=== PATIENT | female | born 1975 | race American Indian/Alaskan Native ===

== ENCOUNTER 2016-11-04 07:58 | Day surgery (SDC) | payer MEDICAID ==
[2016-11-04] MEDS ORDERED: Lactated Ringers 1,000 ML IV SCH (08:00)
[2016-11-04] MEDS ORDERED: Sodium Chloride 0.9% 10 ML Syringe FLUSH PRN ×2 (08:00)
[2016-11-04] MEDS: ceFAZolin 1 GM in Premix Bag 1 BAG IV ONE ×2 (09:13→10:10)
[2016-11-04] MEDS ORDERED: Ondansetron 4 MG/2 ML SDV ONE (09:27)
[2016-11-04] MEDS ORDERED: Propofol 200 MG/20 ML SDV ONE (09:27)
[2016-11-04] MEDS ORDERED: fentaNYL 100 MCG/2 ML SDV ONE (09:27)
[2016-11-04] MEDS ORDERED: Midazolam 1 MG/ML 2 ML SDV ONE (09:27)
[2016-11-04] MEDS ORDERED: Ketorolac 30 MG/ML SDV ONE (09:27)
[2016-11-04] MEDS ORDERED: Glycopyrrolate 0.2 MG/ML 2 ML SDV ONE (09:27)
[2016-11-04] MEDS ORDERED: Bupivacaine 0.5% 10 ML SDV ONE (09:29)
[2016-11-04] MEDS ORDERED: Lidocaine 1% 30 ML SDV ONE (09:30)
[2016-11-04] MEDS ORDERED: Bupivacaine 0.5% 10 ML SDV INJECT ONE ×3 (09:59→12:31)
[2016-11-04] MEDS ORDERED: Lidocaine 1% 30 ML SDV INJECT ONE ×3 (09:59→12:31)
[2016-11-04] MEDS ORDERED: Acetaminophen/oxyCODONE 325-5 MG Tab PO PRN (12:50)
--- NOTE | 2016-11-04 12:53 | PCM.OPNOTE ---
- General Post-Op/Procedure Note Date of Surgery/Procedure: 11/04/16 Operative Procedure(s): right lateral ankle stabilization with bone anchor, peroneal brevis tendon tear repair with amniofix allograft, sural neurectomy with implantation into muscle belly. Pre Op Diagnosis: lateral ankle instability, peroneal tendon pain/tear, painful sural nerve intrapment. Post-Op Diagnosis: sujatha Anesthesia Technique: General LMA Primary Surgeon: Cailin Soares Anesthesia Provider: Yoel Napoles EBL in mLs: 5 Complications: none Condition: Good Free Text/Narrative:: Intake & Output 11/03/16 11/04/16 11/04/16 22:59 06:59 14:59 Intake Total 50 Balance 50 Pt tolerated procedure well and was transported to pacu with vss and vascular status intact to [facility]. TT 120 mins. [place] bone anchor placed in distal fibula, amniofix applied to peroneal tendon and also to sural nerve. Well padded L&U splint applied.
[2016-11-04] MEDS ORDERED: HYDROmorphone 1 MG/ML Syringe ONE ×2 (13:12→13:32)
[2016-11-04] MEDS ORDERED: fentaNYL 100 MCG/2 ML SDV IV ONE (15:07)
[2016-11-04] MEDS ORDERED: Ondansetron 4 MG/2 ML SDV IV ONE (15:07)
[2016-11-04] MEDS ORDERED: Glycopyrrolate 0.2 MG/ML 2 ML SDV IV ONE (15:07)
[2016-11-04] MEDS ORDERED: Propofol 200 MG/20 ML SDV IV ONE (15:07)
[2016-11-04] MEDS ORDERED: Ketorolac 30 MG/ML SDV IVPUSH ONE (15:07)
[2016-11-04] MEDS ORDERED: Midazolam 1 MG/ML 2 ML SDV IV ONE (15:07)
[2016-11-04] MEDS ORDERED: Lactated Ringers 1,000 ML IV ONE (15:08)
[2016-11-04 15:31] VITALS: BP 150/86
--- NOTE | 2016-11-05 23:29 | OR ---
DATE: 11/04/2016 PREOPERATIVE DIAGNOSES: 1. Right peroneal tendon tear. 2. Right foot sural nerve entrapment/neuritis. 3. Right lateral ankle instability. POSTOPERATIVE DIAGNOSES: 1. Right peroneal tendon tear. 2. Right foot sural nerve entrapment/neuritis. 3. Right lateral ankle instability. PROCEDURE PERFORMED: 1. Right ankle peroneal tendon repair with amnion allograft. 2. Right foot sural neurectomy with transposition into the peroneal muscle belly with amnion allograft. 3. Right lateral ankle stabilization procedure with bone anchor. ANESTHESIA: LMA with preoperative local block of 10 mL of 1:1 mixture of 1% lidocaine plain and 0.5% Marcaine plain. TOURNIQUET TIME: 120 minutes pneumatic thigh tourniquet. ESTIMATED BLOOD LOSS: Minimal. SPECIMEN: None. COMPLICATIONS: None. INDICATIONS: Soraya is a 41-year-old female, who is presenting with chronic right ankle pain and instability. She had a surgery done on that right ankle over 2 years ago back in 2013. She had an injury after that initial surgery and re- injured her ankle. Since that time, she has been having pain and instability to that ankle and foot. We have tried Nupur Ankle Brace which helped for a little bit for some time, but she is still having the pain. She is also on Lyrica for the nerve pain. She states that she is still having the nerve pain at night mostly, there is a spot along the outside of her foot and ankle that really thomas and bothers her. She also has pain on the outside front of the ankle which feels very unstable for her and she has to be very careful where she walks due to chronic spraining of that ankle. The ankle feels like it is wobbling all the time. We have tried injections into the nerve area without any relief. She reports that the ankle will get swollen by the end of the day. MRI of the right ankle performed on March revealed a longitudinal tear of the peroneal brevis tendon, postsurgical changes at the peroneal longus tendon without any obvious tear, ATFL is not visualized and appears to be torn with increased signal to that area. There is also increased signal at the lateral posterior foot along the sural nerve course. No fractures. The patient voiced good understanding of the proposed procedure and possible complications and elects to have surgery at this time. I did discuss with her that if we do have to do the nerve release, then she will have numbness to that outside of the foot. She understands and wants to go ahead with the procedure. DESCRIPTION OF PROCEDURE: The patient was taken to the operating room, lying in supine position. After adequate anesthesia induction as described above, the right foot and ankle were prepped in the usual sterile fashion. A pneumatic thigh tourniquet was then inflated to 245 mmHg. Attention was then directed to the posterolateral aspect of the ankle where an approximately 5 cm linear incision was made along the course of the peroneal tendons posterior to the lateral malleolus starting approximately 3 cm proximal to the distal tip of the fibula and ending just distal to the fibula. A linear incision was made through the periosteum and on the fibula and the peroneal tendon sheaths and the peroneal tendons were exposed. The peroneal tendons were then inspected and an approximately 2 cm longitudinal tear was noted in the mid substance of the peroneus brevis in the location just posterior to the lateral malleolus. The rest of the peroneal brevis tendon was healthy in appearance, the longus tendon was also healthy in appearance without any signs of tears or defects. The tear was cut out with 15 blade and then was repaired and retubularized with 3-0 nylon. The groove at the posterolateral aspect of the fibula was inspected and was noted to be concave and smooth in appearance. There was some synovitis present which was all removed. The AmnioFix allograft was then placed around the peroneal brevis tendon tear and the tendon sheath was repaired with 3-0 Vicryl, the peroneal retinaculum was also repaired with 3-0 Vicryl. The tendons were noted to be smooth with range of motion without any subluxation with dorsiflexion or eversion of the foot. Attention was then directed through the same incision and the sural nerve was visualized, this was noted to be severely entrapped in scar tissue just beneath the peroneal tendon area. The nerve was released and was visualized. Upon visualization, it did appear that the nerve was not salvageable. The nerve was transected and the nerve ending was cut to good-appearing healthy nerve. This was then transpositioned into the muscle of the peroneal brevis muscle belly with a 4-0 Vicryl stitch. A small piece of the AmnioFix allograft was then wrapped around the nerve in this area. This was secured down with a 4-0 Vicryl stitch. Attention was then directed to the area just distal to the fibula where a curvilinear incision was made extending from the original incision that we had been using at the distal anterior aspect of the fibula. Sharp and blunt dissection was performed down to the level of the ankle joint capsule and inferior extensor retinaculum. Care was taken to avoid all neurovascular structures and cauterize all bleeders. A 15 blade was then used to incise the anterolateral ankle capsule and ATFL down to the level of the peroneal tendon sheath area. Dissection was made in the layer the extensor retinaculum and the anterior ankle joint. The periosteum was elevated from the distal anterior fibula and a rongeur was used to create a gutter running transversely along the distal tip of the fibula down to bleeding bone. Excessive overlapping soft tissue at the anterior ankle joint was then excised in a lunar fashion. A [facility] corkscrew anchor was then inserted from distal to proximal centered at the distal aspect of the fibula. It was visualized that it was not going into the ankle joint or the peroneal groove. The suture from the bone anchor was then used to suture the ATFL and anterior capsule and secured them down to the fibula with the ankle held in an everted position. The suture was then used to secure the extensor retinaculum over the anterior ankle capsule to the fibula and the remaining suture was then used to secure the periosteum to the inferior extensor retinaculum in a [id number] fashion with the foot in the everted position throughout this entire process. The ankle was then tested and noted to be stable to inversion and talar tilt at this time. The areas were then irrigated with copious amounts of sterile saline. Deep closure was completed with 3-0 Vicryl and skin closure was completed with 4-0 nylon. The area was dressed with Xeroform, fluffs, and Webril and the patient was placed in a well-padded L\T\U splint with the foot in eversion. The patient tolerated the anesthesia and the procedure well and was transported to recovery with vital signs stable and vascular status intact as noted by immediate hyperemia to all digits upon deflation of the thigh tourniquet. Total tourniquet time was 120 minutes. The patient was then discharged home when she met hospital discharge requirements. [facility] /[id number]
== END 2016-11-04 14:25 | disposition home or self-care (01) ==
LOC: DL.SDS 07:58
PROVIDERS: ATTEND Podiatrist
DX: G58.8 Other specified mononeuropathies (principal); M25.371 Other instability, right ankle; E66.9 Obesity, unspecified; F32.9 Major depressive disorder, single episode, unspecified; D64.9 Anemia, unspecified; E10.9 Type 1 diabetes mellitus without complications; Z90.49 Acquired absence of other specified parts of digestive tract; Z98.890 Other specified postprocedural states; I10 Essential (primary) hypertension; Z79.899 Other long term (current) drug therapy; Z79.4 Long term (current) use of insulin; Z88.8 Allergy status to other drugs, medicaments and biological substances
CPT/HCPCS: 27659; 27695; 64704; 80305; 81025; J0690; J7120; 01470; C1713; C1762; J1885; J2250; J2405; J2704; J3010; J3490

== ENCOUNTER 2018-07-06 17:59 | Emergency (ER) | payer MEDICAID, SELFPAY ==
[2018-07-06] MEDS ORDERED: Sodium Chloride 0.9% 10 ML Syringe FLUSH PRN (18:06)
[2018-07-06] MEDS ORDERED: Naloxone 2 MG/2 ML Syringe IVPUSH ONE (18:07)
[2018-07-06] MEDS ORDERED: Sodium Chloride 0.9% 1,000 ML IV ONE (18:09)
[2018-07-06] MEDS ORDERED: Ondansetron 4 MG/2 ML SDV IV ONE (18:09)
[2018-07-06] MEDS ORDERED: Flumazenil 0.1 MG/ML 5 ML MDV IVPUSH ONE (18:09)
[2018-07-06] MEDS ORDERED: Naloxone 2 MG/2 ML Syringe IV ONE (18:10)
[2018-07-06] MEDS ORDERED: Insulin Regular, Human 100 Units/ML 3 ML Vial ONE (18:33)
[2018-07-06 19:08] LABS: SODIUM,NA 123 mmol/L (135-145)
[2018-07-06 19:09] LABS: ANION GAP 38.7; CHLORIDE,CL 76 mmol/L (101-111)
[2018-07-06] MEDS ORDERED: Vasopressin 20 Units/1 ML MDV ONE (19:46)
[2018-07-06] MEDS ORDERED: Phenylephrine 1% 10 MG/ML SDV ONE (19:55)
[2018-07-06 19:59] LABS: BASE EXCESS ARTERIAL -22 mmol/L ((-2)-(+3)); BICARBONATE,ARTERIAL 11.9 mmol/L (22-26); O2 DELIVERY DEVICE VENTILATOR; O2 SATURATION ARTERIAL 68 % (95-100); PCO2 ARTERIAL 60 mmHg (35-45); PO2 ARTERIAL 72 mmHg (70-100)
[2018-07-06] MEDS ORDERED: Sodium Bicarbonate 8.4% 50 MEQ/50 ML Syringe ONE ×2 (20:05→20:06)
--- NOTE | 2018-07-14 07:05 | EDM.PDOCBH ---
Scribed by Dominique Montoya 07/06/18 [id number] for Anahi Cutler NP <Anahi Cutler - Last Filed: 07/07/18 10:35> ED HPI GENERAL MEDICAL PROBLEM - General Chief Complaint: Drug or Alcohol Abuse Stated Complaint: [facility] Time Seen by Provider: 07/06/18 17:57 Source of Information: Reports: Patient, EMS, EMS Notes Reviewed, RN, RN Notes Reviewed History Limitations: Reports: No Limitations - Related Data Allergies Allergy/AdvReac Type Severity Reaction Status Date / Time acetaminophen Allergy Hives Verified 11/03/16 10:51 [From Tylenol-Codeine #3] codeine phosphate Allergy Hives Verified 11/03/16 10:51 [From Tylenol-Codeine #3] meperidine HCl [From Demerol] Allergy Hives Verified 11/03/16 10:51 Home Meds: Home Meds Insulin Aspart [NovoLOG] 10 units SQ TIDMEALS 12/23/13 [History] oxyCODONE HCl/Acetaminophen [Endocet 10-325 mg Tablet] 1 each PO Q6HR PRN [History] Insulin Detemir [Levemir Flextouch] 40 unit SQ DAILY 11/03/16 [History] Pregabalin [Lyrica] 200 mg PO DAILY 11/03/16 [History] Venlafaxine [Effexor XR 24 Hr] 75 mg PO DAILY 11/03/16 [History] oxyCODONE HCl [Roxicodone] 5 mg PO BID PRN 11/03/16 [History] Past Medical History Cardiovascular History: Reports: Hypertension Respiratory History: Reports: None Gastrointestinal History: Reports: Bowel Obstruction, Cholelithiasis, Pancreatitis Musculoskeletal History: Reports: Arthritis, Back Pain, Chronic, Fracture, Other (See Below) Other Musculoskeletal History: Compression fracture. DDD (degenerative disc disease). Myofacial muscle pain syndrome, thoracolumbar region. facet arthritis of LS region Neurological History: Reports: Neuropathy, Diabetic Psychiatric History: Reports: Depression Endocrine/Metabolic History: Reports: Diabetes, Type II, Other (See Below) Other Endocrine/Metabolic History: painful neuropathy probably diabetes related Hematologic History: Reports: Anemia, Iron Deficiency Immunologic History: Reports: None Oncologic (Cancer) History: Reports: None Other Dermatologic History: hx of right leg ulcer - Infectious Disease History Infectious Disease History: Reports: Chicken Pox - Past Surgical History GI Surgical History: Reports: Cholecystectomy, Other (See Below) Female Surgical History: Reports: Section, D&C Musculoskeletal Surgical History: Reports: Carpal Tunnel, Other (See Below) Social & Family History - Family History Family Medical History: Noncontributory - Caffeine Use Caffeine Use: Reports: Coffee, Tea EKG INTERPRETATION EKG Date: 07/06/18 Time: 18:43 Rhythm: Other (sinus rhythm) Rate (Beats/Min): 90 [place]: Normal P-Wave: Present QRS: Other (Nonspecific intraventricular conduction delay and probable left ventricular hypertrophy.) ST-T: Normal QT: Normal COURSE, BEHAVIORAL HEALTH COMP - Course Orders, Labs, Meds: Laboratory Tests 07/06/18 07/06/18 07/06/18 Range/Units 18:30 18:35 18:35 WBC 14.1 H (5.0-10.0) 10^3/uL RBC 5.41 H (4.2-5.4) 10^6/uL Hgb 15.7 D (12.0-16.0) g/dL Hct 46.9 (37.0-47.0) % MCV 86.7 (80-100) fL MCH 29.0 (27.0-34.0) pg MCHC 33.5 (33.0-35.0) g/dL Plt Count 222 D (150-450) 10^3/uL Neut % (Auto) 60.4 (42.2-75.2) % Lymph % (Auto) 23.9 (20.5-50.1) % [place] % (Auto) 15.2 H (2-8) % Eos % (Auto) 0.3 L (1.0-3.0) % Baso % (Auto) 0.2 (0.0-1.0) % Add Manual Diff Yes Neutrophils % (Manual) 7 L (42-75) % Band Neutrophils % 28 % Lymphocytes % (Manual) 57 H (20-50) % Atypical Lymphs % 0 % Monocytes % (Manual) 7 (2-8) % Eosinophils % (Manual) 1 (1-3) % Basophils % (Manual) 0 PT (9.0-12.0) SEC INR (0.9-1.2) APTT (22.0-34.0) SEC ABG pH (7.35-7.45) ABG pCO2 (35-45) mmHg ABG pO2 (70-100) mmHg ABG HCO3 (22-26) mmol/L ABG O2 Saturation (95-100) % ABG Base Excess ((-2)-(+3)) mmol/L O2 Delivery Device Sodium 123 L D (135-145) mmol/L Potassium 3.7 (3.6-5.0) mmol/L Chloride 76 L D (101-111) mmol/L Carbon Dioxide 12.0 L D (21.0-31.0) mmol/L Anion Gap 38.7 BUN 38 H D (7-18) mg/dL Creatinine 1.7 H D (0.6-1.3) mg/dL Est Cr Clr Drug Dosing TNP Estimated GFR (MDRD) 33 BUN/Creatinine Ratio 22.35 Glucose 788 H* (74-105) mg/dL POC Glucose (70-105) mg/dl Lactic Acid (0.5-2.2) mmol/L Calcium 8.2 L (8.4-10.2) mg/dl Phosphorus 12.0 H* (2.5-4.6) mg/dL Magnesium 2.7 H (1.8-2.5) mg/dL Total Bilirubin 1.3 H (0.2-1.0) mg/dL AST 67 H (10-42) IU/L ALT 36 (10-60) IU/L Alkaline Phosphatase 107 (42-121) IU/L Ammonia (11-35) umol/L Troponin I < 0.02 (0.00-0.02) ng/ml Total Protein 6.7 (6.7-8.2) g/dl Albumin 3.5 (3.2-5.5) g/dl Globulin 3.2 Albumin/Globulin Ratio 1.09 Urine Color (YELLOW) Urine Appearance (CLEAR) Urine pH (5.0-9.0) Ur Specific [place] (1.005-1.030) Urine Protein (NEGATIVE) Urine Glucose (UA) (NEGATIVE) Urine Ketones (NEGATIVE) Urine Occult Blood (NEGATIVE) Urine Nitrite (NEGATIVE) Urine Bilirubin (NEGATIVE) Urine Urobilinogen (0.2-1.0) mg/dL Ur Leukocyte Esterase (NEGATIVE) Urine RBC /HPF Urine WBC (0-5/HPF) /HPF Ur Epithelial Cells /HPF Urine Bacteria (0-FEW/HPF) /HPF Urine HCG, Qual Urine Opiates Screen (NEGATIVE) Ur Oxycodone Screen (NEGATIVE) Urine Methadone Screen (NEGATIVE) Ur Barbiturates Screen (NEGATIVE) U Tricyclic Antidepress (NEGATIVE) Ur Phencyclidine Scrn (NEGATIVE) Ur Amphetamine Screen (NEGATIVE) U Methamphetamines Scrn (NEGATIVE) Urine MDMA Screen (NEGATIVE) U Benzodiazepines Scrn (NEGATIVE) Urine Cocaine Screen (NEGATIVE) U Marijuana (THC) Screen (NEGATIVE) Ethyl Alcohol 5 mg/dL Ketones Positive 07/06/18 07/06/18 07/06/18 Range/Units 19:00 19:00 19:00 WBC (5.0-10.0) 10^3/uL RBC (4.2-5.4) 10^6/uL Hgb (12.0-16.0) g/dL Hct (37.0-47.0) % MCV (80-100) fL MCH (27.0-34.0) pg MCHC (33.0-35.0) g/dL Plt Count (150-450) 10^3/uL Neut % (Auto) (42.2-75.2) % Lymph % (Auto) (20.5-50.1) % [place] % (Auto) (2-8) % Eos % (Auto) (1.0-3.0) % Baso % (Auto) (0.0-1.0) % Add Manual Diff Neutrophils % (Manual) (42-75) % Band Neutrophils % % Lymphocytes % (Manual) (20-50) % Atypical Lymphs % % Monocytes % (Manual) (2-8) % Eosinophils % (Manual) (1-3) % Basophils % (Manual) PT (9.0-12.0) SEC INR (0.9-1.2) APTT (22.0-34.0) SEC ABG pH (7.35-7.45) ABG pCO2 (35-45) mmHg ABG pO2 (70-100) mmHg ABG HCO3 (22-26) mmol/L ABG O2 Saturation (95-100) % ABG Base Excess ((-2)-(+3)) mmol/L O2 Delivery Device Sodium (135-145) mmol/L Potassium (3.6-5.0) mmol/L Chloride (101-111) mmol/L Carbon Dioxide (21.0-31.0) mmol/L Anion Gap BUN (7-18) mg/dL Creatinine (0.6-1.3) mg/dL Est Cr Clr Drug Dosing Estimated GFR (MDRD) BUN/Creatinine Ratio Glucose (74-105) mg/dL POC Glucose (70-105) mg/dl Lactic Acid 16.8 H (0.5-2.2) mmol/L Calcium (8.4-10.2) mg/dl Phosphorus (2.5-4.6) mg/dL Magnesium (1.8-2.5) mg/dL Total Bilirubin (0.2-1.0) mg/dL AST (10-42) IU/L ALT (10-60) IU/L Alkaline Phosphatase (42-121) IU/L Ammonia (11-35) umol/L Troponin I (0.00-0.02) ng/ml Total Protein (6.7-8.2) g/dl Albumin (3.2-5.5) g/dl Globulin Albumin/Globulin Ratio Urine Color (YELLOW) Urine Appearance (CLEAR) Urine pH (5.0-9.0) Ur Specific [place] (1.005-1.030) Urine Protein (NEGATIVE) Urine Glucose (UA) (NEGATIVE) Urine Ketones (NEGATIVE) Urine Occult Blood (NEGATIVE) Urine Nitrite (NEGATIVE) Urine Bilirubin (NEGATIVE) Urine Urobilinogen (0.2-1.0) mg/dL Ur Leukocyte Esterase (NEGATIVE) Urine RBC /HPF Urine WBC (0-5/HPF) /HPF Ur Epithelial Cells /HPF Urine Bacteria (0-FEW/HPF) /HPF Urine HCG, Qual Negative Urine Opiates Screen Negative (NEGATIVE) Ur Oxycodone Screen Positive H (NEGATIVE) Urine Methadone Screen Negative (NEGATIVE) Ur Barbiturates Screen Negative (NEGATIVE) U Tricyclic Antidepress Negative (NEGATIVE) Ur Phencyclidine Scrn Negative (NEGATIVE) Ur Amphetamine Screen Negative (NEGATIVE) U Methamphetamines Scrn Negative (NEGATIVE) Urine MDMA Screen Negative (NEGATIVE) U Benzodiazepines Scrn Negative (NEGATIVE) Urine Cocaine Screen Negative (NEGATIVE) U Marijuana (THC) Screen Positive H (NEGATIVE) Ethyl Alcohol mg/dL Ketones 07/06/18 07/06/18 07/06/18 Range/Units 19:00 19:00 19:00 WBC (5.0-10.0) 10^3/uL RBC (4.2-5.4) 10^6/uL Hgb (12.0-16.0) g/dL Hct (37.0-47.0) % MCV (80-100) fL MCH (27.0-34.0) pg MCHC (33.0-35.0) g/dL Plt Count (150-450) 10^3/uL Neut % (Auto) (42.2-75.2) % Lymph % (Auto) (20.5-50.1) % [place] % (Auto) (2-8) % Eos % (Auto) (1.0-3.0) % Baso % (Auto) (0.0-1.0) % Add Manual Diff Neutrophils % (Manual) (42-75) % Band Neutrophils % % Lymphocytes % (Manual) (20-50) % Atypical Lymphs % % Monocytes % (Manual) (2-8) % Eosinophils % (Manual) (1-3) % Basophils % (Manual) PT 11.6 (9.0-12.0) SEC INR 1.2 (0.9-1.2) APTT 31.6 (22.0-34.0) SEC ABG pH (7.35-7.45) ABG pCO2 (35-45) mmHg ABG pO2 (70-100) mmHg ABG HCO3 (22-26) mmol/L ABG O2 Saturation (95-100) % ABG Base Excess ((-2)-(+3)) mmol/L O2 Delivery Device Sodium (135-145) mmol/L Potassium (3.6-5.0) mmol/L Chloride (101-111) mmol/L Carbon Dioxide (21.0-31.0) mmol/L Anion Gap BUN (7-18) mg/dL Creatinine (0.6-1.3) mg/dL Est Cr Clr Drug Dosing Estimated GFR (MDRD) BUN/Creatinine Ratio Glucose (74-105) mg/dL POC Glucose (70-105) mg/dl Lactic Acid (0.5-2.2) mmol/L Calcium (8.4-10.2) mg/dl Phosphorus (2.5-4.6) mg/dL Magnesium (1.8-2.5) mg/dL Total Bilirubin (0.2-1.0) mg/dL AST (10-42) IU/L ALT (10-60) IU/L Alkaline Phosphatase (42-121) IU/L Ammonia 330 H (11-35) umol/L Troponin I (0.00-0.02) ng/ml Total Protein (6.7-8.2) g/dl Albumin (3.2-5.5) g/dl Globulin Albumin/Globulin Ratio Urine Color Yellow (YELLOW) Urine Appearance Slightly cloudy (CLEAR) Urine pH 5.0 (5.0-9.0) Ur Specific [place] <= 1.005 (1.005-1.030) Urine Protein Negative (NEGATIVE) Urine Glucose (UA) 500 H (NEGATIVE) Urine Ketones Trace H (NEGATIVE) Urine Occult Blood Moderate H (NEGATIVE) Urine Nitrite Negative (NEGATIVE) Urine Bilirubin Negative (NEGATIVE) Urine Urobilinogen 0.2 (0.2-1.0) mg/dL Ur Leukocyte Esterase Negative (NEGATIVE) Urine RBC 0-5 /HPF Urine WBC 0-5 (0-5/HPF) /HPF Ur Epithelial Cells Few /HPF Urine Bacteria Moderate H (0-FEW/HPF) /HPF Urine HCG, Qual Urine Opiates Screen (NEGATIVE) Ur Oxycodone Screen (NEGATIVE) Urine Methadone Screen (NEGATIVE) Ur Barbiturates Screen (NEGATIVE) U Tricyclic Antidepress (NEGATIVE) Ur Phencyclidine Scrn (NEGATIVE) Ur Amphetamine Screen (NEGATIVE) U Methamphetamines Scrn (NEGATIVE) Urine MDMA Screen (NEGATIVE) U Benzodiazepines Scrn (NEGATIVE) Urine Cocaine Screen (NEGATIVE) U Marijuana (THC) Screen (NEGATIVE) Ethyl Alcohol mg/dL Ketones 07/06/18 07/06/18 07/06/18 Range/Units 19:04 19:54 20:10 WBC (5.0-10.0) 10^3/uL RBC (4.2-5.4) 10^6/uL Hgb (12.0-16.0) g/dL Hct (37.0-47.0) % MCV (80-100) fL MCH (27.0-34.0) pg MCHC (33.0-35.0) g/dL Plt Count (150-450) 10^3/uL Neut % (Auto) (42.2-75.2) % Lymph % (Auto) (20.5-50.1) % [place] % (Auto) (2-8) % Eos % (Auto) (1.0-3.0) % Baso % (Auto) (0.0-1.0) % Add Manual Diff Neutrophils % (Manual) (42-75) % Band Neutrophils % % Lymphocytes % (Manual) (20-50) % Atypical Lymphs % % Monocytes % (Manual) (2-8) % Eosinophils % (Manual) (1-3) % Basophils % (Manual) PT (9.0-12.0) SEC INR (0.9-1.2) APTT (22.0-34.0) SEC ABG pH 6.93 L* (7.35-7.45) ABG pCO2 60 H (35-45) mmHg ABG pO2 72 (70-100) mmHg ABG HCO3 11.9 L (22-26) mmol/L ABG O2 Saturation 68 L (95-100) % ABG Base Excess -22 L ((-2)-(+3)) mmol/L O2 Delivery Device Ventilator Sodium (135-145) mmol/L Potassium (3.6-5.0) mmol/L Chloride (101-111) mmol/L Carbon Dioxide (21.0-31.0) mmol/L Anion Gap BUN (7-18) mg/dL Creatinine (0.6-1.3) mg/dL Est Cr Clr Drug Dosing Estimated GFR (MDRD) BUN/Creatinine Ratio Glucose (74-105) mg/dL POC Glucose > 500 H* > 500 H* (70-105) mg/dl Lactic Acid (0.5-2.2) mmol/L Calcium (8.4-10.2) mg/dl Phosphorus (2.5-4.6) mg/dL Magnesium (1.8-2.5) mg/dL Total Bilirubin (0.2-1.0) mg/dL AST (10-42) IU/L ALT (10-60) IU/L Alkaline Phosphatase (42-121) IU/L Ammonia (11-35) umol/L Troponin I (0.00-0.02) ng/ml Total Protein (6.7-8.2) g/dl Albumin (3.2-5.5) g/dl Globulin Albumin/Globulin Ratio Urine Color (YELLOW) Urine Appearance (CLEAR) Urine pH (5.0-9.0) Ur Specific [place] (1.005-1.030) Urine Protein (NEGATIVE) Urine Glucose (UA) (NEGATIVE) Urine Ketones (NEGATIVE) Urine Occult Blood (NEGATIVE) Urine Nitrite (NEGATIVE) Urine Bilirubin (NEGATIVE) Urine Urobilinogen (0.2-1.0) mg/dL Ur Leukocyte Esterase (NEGATIVE) Urine RBC /HPF Urine WBC (0-5/HPF) /HPF Ur Epithelial Cells /HPF Urine Bacteria (0-FEW/HPF) /HPF Urine HCG, Qual Urine Opiates Screen (NEGATIVE) Ur Oxycodone Screen (NEGATIVE) Urine Methadone Screen (NEGATIVE) Ur Barbiturates Screen (NEGATIVE) U Tricyclic Antidepress (NEGATIVE) Ur Phencyclidine Scrn (NEGATIVE) Ur Amphetamine Screen (NEGATIVE) U Methamphetamines Scrn (NEGATIVE) Urine MDMA Screen (NEGATIVE) U Benzodiazepines Scrn (NEGATIVE) Urine Cocaine Screen (NEGATIVE) U Marijuana (THC) Screen (NEGATIVE) Ethyl Alcohol mg/dL Ketones Medications Discontinued Medications Generic Name Dose Route Start Last Admin Trade Name Freq PRN Reason Stop Dose Admin Flumazenil 0.2 mg 07/06/18 18:09 Romazicon IVPUSH 07/06/18 18:10 ONETIME ONE Sodium Chloride 1,000 mls @ 999 mls/hr 07/06/18 18:09 Normal Saline IV 07/06/18 19:09 .BOLUS ONE Phenylephrine HCl 10 mg/ 101 mls @ 24.24 mls/hr 07/06/18 20:00 Sodium Chloride IV TITRATE LEILANI Protocol 40 MCG/MIN Insulin Human Regular Confirm 07/06/18 18:33 Humulin R Administered 07/06/18 18:34 Dose 300 unit .ROUTE .STK-MED ONE Naloxone HCl 2 mg 07/06/18 18:07 Narcan IVPUSH 07/06/18 18:08 ONETIME ONE Naloxone HCl 2 mg 07/06/18 18:10 Narcan IV 07/06/18 18:11 ONETIME ONE Ondansetron HCl 4 mg 07/06/18 18:09 Zofran IV 07/06/18 18:10 ONETIME ONE Phenylephrine HCl Confirm 07/06/18 19:55 Jh-Synephrine Administered 07/06/18 19:56 Dose 10 mg .ROUTE .STK-MED ONE Sodium Bicarbonate Confirm 07/06/18 20:05 Sodium Bicarbonate 8.4% Administered 07/06/18 20:06 Dose 50 meq .ROUTE .STK-MED ONE Sodium Bicarbonate Confirm 07/06/18 20:06 Sodium Bicarbonate 8.4% Administered 07/06/18 20:07 Dose 50 meq .ROUTE .STK-MED ONE Sodium Chloride 10 ml 07/06/18 18:06 Saline Flush FLUSH ASDIRECTED PRN Keep Vein Open Vasopressin Confirm 07/06/18 19:46 Vasopressin Administered 07/06/18 19:47 Dose 20 units .ROUTE .STK-MED ONE Re-Assessment/Re-Exam: Chest x-ray: ET tube ends 1cm proximal to the dony. NG tube in the stomach. See rad report. Re-Assessment/Re-Exam Date: 07/06/18 (Patient left the ER with flight crew for transfer to [facility] in . Approximately 2044 notified by flight crew that the patient became asystole again and CPR was in progress, report that epinephrine 1mg had been given x3, pt remains asystole. TOD called at 2058. [email or web address] notified , family notified. ) Departure - Departure Disposition: 20 Clinical Impression: Cardiopulmonary arrest with successful resuscitation, Opiate dependence, continuous DKA (diabetic ketoacidoses) Qualifiers: Diabetes mellitus type: type 2 Diabetes mellitus complication detail: with coma Qualified Code(s): E11.11 - Type 2 diabetes mellitus with ketoacidosis with coma Uncontrolled diabetes mellitus Qualifiers: Diabetes mellitus type: type 1 Qualified Code(s): E10.8 - Type 1 diabetes mellitus with unspecified complications - Discharge Information Referrals: Elda Frazier MD [Primary Care Provider] - Forms: ED Department Discharge, Interfacility Transfer EMTALA <Dylan Umaña - Last Filed: 07/08/18 15:48> ED HPI GENERAL MEDICAL PROBLEM - General History Limitations: Reports: No Limitations, Altered Mental Status (became unresponsive shortly after arrival to ER) - History of Present Illness INITIAL COMMENTS - FREE TEXT/NARRATIVE: Arrives from home by [facility] with report that pt became unresponsive while on the commode. EMS found pt on a sofa unresponsive. Pt's children reported that she might have overdosed on Percocet. Pt's does not think she overdosed. EMS gave Narcan 4mg intranasally x2 and report that pt did have some response and became "a little more alert". Shortly after arriving to the ER the pt became unresponsive and a pulseless, and izabela maciel was called. Onset: Today, Unknown/Unsure Location: Reports: Generalized Severity: Severe Past Medical History - History Comment History Comment: unable to obtain Hx from pt. Pt's states pt is diabetic, but doesn't know if she is type 1 or 2. Social & Family History - Family History Family Medical History: Unobtainable (from pt. (unresponsive)) ED ROS GENERAL - Review of Systems Review Of Systems: Unable To Obtain ED EXAM, BEHAVIORAL HEALTH - Physical Exam Exam: See Below Exam Limited By: Other (Unresponsive) General Appearance: Obtunded, Severe Distress Eye Exam: Bilateral Eye: Abnormal Pupil (sluggishly responsive 2mm B/L) Ears: Normal External Exam Nose: Normal Inspection, Normal Mucosa, No Blood Throat/Mouth: No Airway Compromise, Other (very dry oral membranes) Head: Atraumatic, Normocephalic Neck: Normal Inspection Respiratory/Chest: Decreased Breath Sounds, Other (cardiopulomary arrest shortly after arrival) Cardiovascular: Other (cardiac arrest, pulseless shortly after arrival (see code blue record for times)) GI/Abdominal: Abnormal Bowel Sounds (hypoactive, active emesis prior to code) Extremities: Normal Inspection Neurological: No Response to Commands Skin Exam: Dry, Cool, Pallor Endotracheal Intubation - Endotracheal Intubation Time of Intubation: 18:00 (see code blue document for exact time) ET Intubation Indication: Respiratory Failure Preparation: Suction, Balloon Tested Airway Assessment: Other (active emesis, anterior airway) Pre-Oxygenation: Assisted with BVM, 100% FiO2 Anesthesia Meds: Etomidate, Succinylcholine Placement: Orotracheal, Cuffed, Complicated Placement Cords Visualized: Yes ETT Size In mm: 7.5 Number of Attempts: 2 Confirmed By: Bilateral Breath Sounds, Chest Xray Tube Secured By: By RT COURSE, BEHAVIORAL HEALTH COMP - Course Vital Signs: See code blue document: 16 mins. CPR. Pt accepted by Dr. Crawford at [facility] Flight present to transfer the pt. Departure - Departure Time of Disposition: 18:55 Condition: Critical - Discharge Information *PRESCRIPTION DRUG MONITORING PROGRAM REVIEWED*: No *COPY OF PRESCRIPTION DRUG MONITORING REPORT IN PATIENT MELINA: No I have read and agree with the documentation that has been completed regarding this visit. By signing this record, I attest that the documentation was completed in my physical presence and is an accurate record of the encounter.
== END 2018-07-07 00:20 | disposition expired ==
LOC: DL.ED 17:59
DX: I46.9 Cardiac arrest, cause unspecified (principal); E11.11 Type 2 diabetes mellitus with ketoacidosis with coma; E11.40 Type 2 diabetes mellitus with diabetic neuropathy, unspecified; F11.20 Opioid dependence, uncomplicated; Z88.8 Allergy status to other drugs, medicaments and biological substances; Z88.5 Allergy status to narcotic agent
CPT/HCPCS: 31500; 36415; 36600; 71045; 80053; 80305; 81001; 81025; 82009; 82140; 82803; 82962; 83605; 83735; 84100; 84484; 85025; 85610; 85730; 87040; 87077; 87186; 92950; 93005; 99285; G0480